=== PATIENT | female | born 1985 | race Caucasian/White ===

== ENCOUNTER 2017-03-19 10:22 | Outpatient (CLI) | payer OTHER ==
[~2017-03-19 10:22] MED LIST: COLACE100 MG PO; COUMADIN5 MG PO; COUMADIN7.5 MG PO; HYDROCODON-ACE1 EAC7 PO; IBUPROFEN600 MG PO; PERCOCET 5-3251 TAB PO; PRENATAL COMPLE1 TAB PO; STOOL SOFTENER240 MG; VALTREX500 MG PO
== END 2017-03-19 11:51 ==
LOC: D.MAMMO 10:22
DX: R92.8 Other abnormal and inconclusive findings on diagnostic imaging of breast (principal)

== ENCOUNTER 2019-09-13 08:00 | Outpatient (CLI) | payer BC | END 2019-09-13 23:59 | disposition home or self-care (01) | LOC: D.MAMMO 08:00 | PROVIDERS: ATTEND Emergency Medicine | DX: Z12.31 Encounter for screening mammogram for malignant neoplasm of breast (principal) ==